=== PATIENT | female | born 1965 | race Caucasian/White ===

== ENCOUNTER 2017-10-17 21:44 | Emergency (ER) | payer SELFPAY ==
[~2017-10-17] VITALS: Ht 157.5 cm; Wt 58.1 kg
[2017-10-17 21:50] VITALS: BP 119/82
--- NOTE | 2017-10-17 21:53 | NUR ---
TO BED # 11 AMB, REPORT GIVEN TO MAHESH REAL.
--- NOTE | 2017-10-17 21:55 | NUR ---
PATIENT PRESENTS TO ED WITH pt came in with c/o pain while urinating. pt has frequent uti per pt. pt is from [facility] and arrived in [place] 5 days ago. . DENIES N/V/D; SKIN IS PINK/WARM/DRY; AAOX4 WITH EVEN AND STEADY GAIT; LUNGS CLEAR BL; HR EVEN AND REGULAR; PT DENIES ANY FEVER, CP, SOB, OR COUGH AT THIS TIME; PATIENT STATES PAIN OF 10/10 AT THIS TIME; VSS; PATIENT POSITIONED FOR COMFORT; HOB ELEVATED; BEDRAILS UP X2; BED DOWN. ER MD MADE AWARE OF PT STATUS.
--- NOTE | 2017-10-17 22:38 | NUR ---
pt is crying in bed, offerred her comfort measures.
--- NOTE | 2017-10-17 23:15 | NUR ---
pt agitated and crying, comfort measures offered.
--- NOTE | 2017-10-17 23:28 | NUR ---
Dr. Richmond evaluating patient at bedside.
[2017-10-17] MEDS ORDERED: cefTRIAXone 1,000 MG in LIDOCAINE MPF 1% - **ER/OR** 2.1 ML IM ONE (23:35)
[2017-10-17] MEDS ORDERED: PHENAZOPYRIDINE 100 MG TAB PO ONE (23:35)
[2017-10-18 00:15] VITALS: BP 119/82
--- NOTE | 2017-10-18 00:15 | NUR ---
Patient discharged with v/s stable. Written and verbal after care instructions given and explained. Patient alert, oriented and verbalized understanding of instructions. Ambulatory with steady gait. All questions addressed prior to discharge. ID band removed. Patient advised to follow up with PMD. Rx of Cipro, phenazopyridine were given. Patient educated on indication of medication including possible reaction and side effects. Opportunity to ask questions provided and answered.
--- NOTE | 2017-10-21 11:33 | NUR ---
TANYA LEFT ADDRESS AND PHONE NUMBER FOR [facility], UNABLE TO CONTACT AT THIS TIME.
--- NOTE | 2017-10-21 11:34 | NUR ---
URINE CULTUTE RETURNED SENT HOME ON CIPRO, PRATEEK ON CULTURE REPORT NO FURTHER CARE NEEDED.
== END 2017-10-18 00:15 | disposition home or self-care (01) ==
LOC: MED 21:44
DX: N39.0 Urinary tract infection, site not specified (principal)
CPT/HCPCS: 81002; 81025; 87086; 87186; 96372; 99284; J0696; J2001; 99283